=== PATIENT | female | born 1960 | race Caucasian/White ===

== ENCOUNTER 2019-03-22 17:32 | Emergency (ER) | payer BC ==
--- NOTE | 2019-03-22 18:11 | EDM.PDOC ---
ED HPI GENERAL MEDICAL PROBLEM - General Chief Complaint: General Stated Complaint: BRUISE TO HEAD Time Seen by Provider: 03/22/19 17:57 Source of Information: Reports: Patient History Limitations: Reports: No Limitations - History of Present Illness INITIAL COMMENTS - FREE TEXT/NARRATIVE: Pt was at work and slipped and fell on the ice and hit the front of her head above the right eye, nose and chin. She has large hematoma above the right eyebrow. She denies any LOC . Does have headache starting. Denies any dizziness. No change in vision noted. Nose has a small abrasion. Some swelling noted. small abrasion noted under the right eye without any active bleeding Denies any c-spine tenderness. GCS=15 Onset: Today Location: Reports: Face Past Medical History Respiratory History: Reports: COPD Social & Family History - Tobacco Use Smoking Status *Q: Current Every Day Smoker ED ROS GENERAL - Review of Systems Review Of Systems: See Below Constitutional: Denies: Fever, Chills HEENT: Denies: Vision Change Respiratory: Reports: Wheezing (I haven't done my treatments yet today.) Cardiovascular: Reports: No Symptoms Musculoskeletal: Reports: Other (face pain). Denies: Neck Pain, Back Pain Skin: Reports: Wound (see HPI) Neurological: Reports: Headache. Denies: Confusion, Dizziness, Numbness, Tingling ED EXAM, GENERAL - Physical Exam Exam: See Below Exam Limited By: No Limitations General Appearance: Alert, WD/WN, No Apparent Distress Eye Exam: Bilateral Eye: PERRL (4 mm) Ears: Normal External Exam, Normal Canal, Normal TMs Nose: Other (small abrasion across the bridge of her nose. some swelling noted. no deformity noted.) Head: Other (hematoma above the right eyebrow.) Neck: Normal Inspection, Supple, Non-Tender, Full Range of Motion Respiratory/Chest: No Respiratory Distress, Lungs Clear, Normal Breath Sounds Cardiovascular: Regular Rate, Rhythm Back Exam: Normal Inspection, Full Range of Motion Extremities: Normal Inspection, Normal Range of Motion, Non-Tender Neurological: Alert, Oriented, CN II-XII Intact, Normal Cognition, Normal Gait Psychiatric: Normal Affect Skin Exam: Warm, Dry, Intact Course - Re-Assessments/Exams Free Text/Narrative Re-Assessment/Exam: 03/22/19 18:15 No obvious bleeding noted on CT. Steady when walking. GCS remains 15. Departure - Departure Time of Disposition: 18:16 Disposition: Home, Self-Care 01 Condition: Good Clinical Impression: Fall from slipping on ice Qualifiers: Encounter type: initial encounter Qualified Code(s): W00.9XXA - Unspecified fall due to ice and snow, initial encounter CHI (closed head injury) Qualifiers: Encounter type: initial encounter Qualified Code(s): S09.90XA - Unspecified injury of head, initial encounter - Discharge Information *PRESCRIPTION DRUG MONITORING PROGRAM REVIEWED*: Not Applicable *COPY OF PRESCRIPTION DRUG MONITORING REPORT IN PATIENT KIRBY: Not Applicable Referrals: Dalton Carey MD [Primary Care Provider] - Additional Instructions: Tylenol as needed for discomfort and headache Ice to face for swelling discussed any sign of concussion to return immediately to include change in vision, nausea/vomiting, loss of balance, confusion. - Problem List & Annotations (1) Fall from slipping on ice SNOMED Code(s): 948177723 Code(s): W00.9XXA - UNSPECIFIED FALL DUE TO ICE AND SNOW, INITIAL ENCOUNTER Status: Acute Priority: High Current Visit: Yes Qualifiers: Encounter type: initial encounter Qualified Code(s): W00.9XXA - Unspecified fall due to ice and snow, initial encounter (2) CHI (closed head injury) SNOMED Code(s): 413106754379 Code(s): S09.90XA - UNSPECIFIED INJURY OF HEAD, INITIAL ENCOUNTER Status: Acute Priority: High Current Visit: Yes Qualifiers: Encounter type: initial encounter Qualified Code(s): S09.90XA - Unspecified injury of head, initial encounter - Problem List Review Problem List Initiated/Reviewed/Updated: Yes
== END 2019-03-22 18:28 | disposition home or self-care (01) ==
LOC: CC.ED 17:32
DX: S00.11XA Contusion of right eyelid and periocular area, initial encounter (principal); S00.31XA Abrasion of nose, initial encounter; F17.200 Nicotine dependence, unspecified, uncomplicated; W00.0XXA Fall on same level due to ice and snow, initial encounter
CPT/HCPCS: 70450; 99283-25